=== PATIENT | female | born 1950 | race Caucasian/White ===

== ENCOUNTER 2021-11-10 09:44 | Inpatient (IN) | payer MEDICARE ==
[2021-11-10 14:46] LABS: Bilirubin Neg (Negative); Blood, Urine Negative (Negative); Clarity Clear (Clear); Glucose, Urine (Dipstick) Normal (Negative); Ketone, Urine Negative (Negative); Leukocyte 25 (Negative); Nitrite Negative (Negative); Protein, Urine (Dipstick) Negative (Neg-Trace); Specific Gravity, Urine 1.015 (1.002-1.036); Urobilinogen Normal mg/dL (Less than 2)
[2021-11-10 14:53] LABS: #Eosinphils 0.1 10x3/uL (0.0-0.5); #Monocytes 0.5 10x3/uL (0.0-1.1); #Neutrophils 3.9 10x3/uL (1.5-8.4); %Basophils 0.5 % (0.0-2.0); %Eosinophils 0.9 % (0.0-6.0); %Monocytes 9.2 % (0.0-10.0); %Neutrophils 66.2 % (40.0-75.0); Hemoglobin 14.6 g/dL (12.0-15.5); Mean Corpuscular HGB CONC 32.3 g/dL (32.0-36.0); Mean Corpuscular Hemoglobin 27.8 pg (27.0-33.0); Mean Corpuscular Volume 85.9 fl (81.6-98.3); Mean Platelet Volume 10.7 fl (7.4-10.4); Platelet Count 261 10x3/uL (150-450); RBC Distribution Width 13.2 % (11.5-14.5); Red Blood Cell (RBC) Count 5.26 10x6/uL (3.90-5.03); White Blood Cell (WBC) Count 5.9 10x3/uL (3.5-10.5)
[2021-11-10 14:58] LABS: INR-International Normal Ratio 0.9; Prothrombin Time 9.9 sec (9.5-12.1)
[2021-11-10 15:00] LABS: Anion Gap 17 mmol/L (10-20); BUN (Urea Nitrogen) 11 mg/dL (9.8-20.1); Calc. Creatinine Clearance 0 mL/min (70-130); Calcium 10.1 mg/dL (7.8-10.44); Carbon Dioxide 30 mmol/L (23-31); Chloride 103 mmol/L (98-107); Estimated GFR 75; Glucose 83 mg/dL (83-110); Potassium 4.1 mmol/L (3.5-5.1); Sodium 146 mmol/L (136-145)
[2021-11-11 10:24] VITALS: BMI 35.9
[2021-11-15] MEDS ORDERED: fentaNYL Citrate/PF 100 MCG/2 ML SYRINGE ONE ×3 (06:15→07:58)
[2021-11-15] MEDS ORDERED: Vancomycin (BATCH) 1.5 GRAM/300 ML BAG ONE (06:19)
[2021-11-15] MEDS ORDERED: Sodium Chloride 0.9% 100 ML ONE ×2 (06:19→07:03)
[2021-11-15] MEDS ORDERED: Tranexamic Acid 1,000 MG/10 ML VIAL ONE (06:19)
[2021-11-15] MEDS ORDERED: Bupivacaine PF 0.5% 30 ML VIAL ONE (06:23)
[2021-11-15] MEDS ORDERED: methylPREDNISolone Acetate 40 mg/ml Vial ONE (06:23)
[2021-11-15] MEDS ORDERED: Lidocaine 1% (PF) 30 ML VIAL ONE (06:23)
[2021-11-15] MEDS ORDERED: Meperidine HCl/PF 25 MG/ML VIAL SLOW IVP PRN (06:38)
[2021-11-15] MEDS ORDERED: Promethazine HCl 25 MG/ML VIAL IVPB PRN (06:38)
[2021-11-15] MEDS ORDERED: Promethazine HCl 25 MG/ML VIAL IM PRN ×3 (06:38→07:45)
[2021-11-15] MEDS ORDERED: Ondansetron HCl/PF 4 MG/2 ML Vial IVP PRN (06:38)
[2021-11-15] MEDS ORDERED: HYDROmorphone 2 MG/ML VIAL SLOW IVP PRN (06:38)
[2021-11-15] MEDS ORDERED: Midazolam HCl 2 mg/2 ml Vial ONE (06:41)
[2021-11-15] MEDS ORDERED: PROPOFOL 200 MG/20 ML VIAL ONE (06:46)
[2021-11-15] MEDS ORDERED: Ondansetron PF 4 MG/2 ML Vial ONE (06:46)
[2021-11-15] MEDS ORDERED: Bupivacaine HCl 0.5%/Epinephrine 1:200,000/PF 30 ml Vial ONE (06:46)
[2021-11-15] MEDS ORDERED: Dexamethasone 20 MG/5 ML VIAL ONE (06:46)
[2021-11-15] MEDS ORDERED: Lidocaine 1% PF 5 ML VIAL ONE (06:46)
[2021-11-15] MEDS ORDERED: CEFAZOLIN 2 GM VIAL ONE (07:03)
[2021-11-15] MEDS ORDERED: Acetaminophen 325 MG TAB PO PRN (07:19)
[2021-11-15] MEDS ORDERED: Fentanyl 100 MCG/2 ML VIAL SLOW IVP PRN (07:19)
[2021-11-15] MEDS ORDERED: Ondansetron PF 4 MG/2 ML Vial IVP PRN ×2 (07:19→07:45)
[2021-11-15] MEDS ORDERED: traMADol HCl 50 MG TAB PO PRN ×3 (07:19→07:45)
[2021-11-15] MEDS ORDERED: diphenhydrAMINE 25 MG CAP PO PRN (07:19)
[2021-11-15] MEDS ORDERED: Zolpidem Tartrate 5 MG TAB PO PRN ×2 (07:19→07:45)
[2021-11-15] MEDS ORDERED: HYDROcodone/Acetaminophen 10/325 mg Tablet PO PRN ×3 (07:19→07:45)
[2021-11-15] MEDS ORDERED: Vancomycin HCl 1.5 GM in Sodium Chloride 0.9% 250 ML 300 ML IVPB SCH (07:30)
[2021-11-15] MEDS ORDERED: Tranexamic Acid 1,000 MG in Sodium Chloride 0.9% 100 ML IVPB SCH (07:30)
[2021-11-15] MEDS ORDERED: ceFAZolin 2 GM/Dextrose 50 ML 2 GM in Premix Bag 1 BAG IVPB SCH (07:30)
[2021-11-15] MEDS ORDERED: Fentanyl 100 MCG/2 ML VIAL IV PRN (07:38)
[2021-11-15] MEDS ORDERED: Ropivacaine 0.2% 550 ML 550 ML NERVE BLCK SCH (07:45)
[2021-11-15] MEDS ORDERED: Non-Formulary Item 1 EACH (Calcium Carb, Citrate/Vit D3 [Calcium + D3 Er Tablet] 1 TABLET PO SCH (09:00)
[2021-11-15] MEDS ORDERED: Fentanyl 100 MCG/2 ML VIAL ONE ×2 (09:31→10:02)
[2021-11-15] MEDS: Aspirin 81 mg Enteric Coated Tablet PO SCH ×2 (11:06→21:12)
[2021-11-15] MEDS: Multivitamin W/ Minerals 1 TAB PO SCH (11:07)
[2021-11-15] MEDS: Calcium Carbonate 600 MG + Vit D TAB PO SCH (11:07)
[2021-11-15] MEDS: Ferrous Gluconate 324 MG TAB PO SCH ×2 (11:07→21:12)
[2021-11-15] MEDS: Hydrochlorothiazide 25 MG TAB PO SCH (11:07)
[2021-11-15] MEDS: Senokot S 8.6-50 MG TAB PO SCH ×2 (11:08→21:12)
[2021-11-15] MEDS: Sodium Chloride 0.9% 1,000 ML IV SCH ×2 (12:42→18:50)
[2021-11-15] MEDS: Ketorolac Tromethamine 30 MG/ML VIAL IVP SCH ×3 (12:43→23:40)
[2021-11-15] MEDS ORDERED: Ketorolac Tromethamine 30 MG/ML VIAL IVP SCH (14:00)
[2021-11-15] MEDS: CEFAZOLIN 2 GM in Sodium Chloride 0.9% 100 ML IVPB SCH ×2 (14:48→21:11)
[2021-11-15] MEDS ORDERED: Pravastatin Sodium 40 MG TAB PO SCH (21:00)
[2021-11-15] MEDS ORDERED: Atorvastatin Calcium 10 MG TAB PO SCH (21:00)
[2021-11-16] MEDS: Sodium Chloride 0.9% 1,000 ML IV SCH ×2 (05:05→12:59)
[2021-11-16] MEDS: Ketorolac Tromethamine 30 MG/ML VIAL IVP SCH ×2 (05:06→12:49)
[2021-11-16 05:19] LABS: Hemoglobin 10.4 g/dL (12.0-16.0); Mean Corpuscular HGB CONC 31.9 g/dL (32.0-36.0); Mean Corpuscular Hemoglobin 28.8 pg (27.0-31.0); Mean Corpuscular Volume 90.4 fL (78.0-98.0); Mean Platelet Volume 8.2 fL (7.4-10.4); Platelet Count 177 thou/uL (130-400); RBC Distribution Width 12.5 % (11.5-14.5); Red Blood Cell (RBC) Count 3.61 mill/uL (4.20-5.40); White Blood Cell (WBC) Count 16.3 thou/uL (4.8-10.8)
[2021-11-16] MEDS: Calcium Carbonate 600 MG + Vit D TAB PO SCH (07:57)
[2021-11-16] MEDS: Multivitamin W/ Minerals 1 TAB PO SCH (07:57)
[2021-11-16] MEDS: Hydrochlorothiazide 25 MG TAB PO SCH (07:57)
[2021-11-16] MEDS: Aspirin 81 mg Enteric Coated Tablet PO SCH (07:57)
[2021-11-16] MEDS: Ferrous Gluconate 324 MG TAB PO SCH (07:57)
[2021-11-16] MEDS: Senokot S 8.6-50 MG TAB PO SCH (07:58)
[2021-11-16] MEDS: HYDROcodone/Acetaminophen 10/325 mg Tablet PO PRN ×2 (08:00→16:21)
[2021-11-16 15:48] VITALS: BP 131/70; TEMP 98.5
== END 2021-11-16 16:00 | disposition home or self-care (01) | DRG 470 ==
LOC: SURG A 11-15 05:31 → SJJU 11-15 10:59
PROVIDERS: ADMIT Orthopaedic Surgery; ATTEND Orthopaedic Surgery
PROC: 0SRC0J9 Replacement of Right Knee Joint with Synthetic Substitute, Cemented, Open Approach (ICD-10-PCS; principal; 2021-11-15)
PROC: 3E0U33Z Introduction of Anti-inflammatory into Joints, Percutaneous Approach (ICD-10-PCS; 2021-11-15)
PROC: 3E0U3BZ Introduction of Anesthetic Agent into Joints, Percutaneous Approach (ICD-10-PCS; 2021-11-15)
DX: M17.0 Bilateral primary osteoarthritis of knee (principal); M75.42 Impingement syndrome of left shoulder; Z20.822 Contact with and (suspected) exposure to COVID-19; M25.761 Osteophyte, right knee; Z79.899 Other long term (current) drug therapy; Z90.710 Acquired absence of both cervix and uterus
CPT/HCPCS: 36415; 80048; 81003; 85025; 85027; 85610; 86850; 86900; 86901; 87081; 87811; A4306; C1713; C1776; J0690; J1100; J1885; J2001; J2250; J2405; J2704; J2795; J2920; J3010; J3370; J3490; J7050; S0020

== ENCOUNTER 2021-11-10 12:58 | Outpatient (CLI) | payer MEDICARE | END 2021-11-10 12:59 | disposition home or self-care (01) | LOC: LABBT 12:58 | PROVIDERS: ATTEND Orthopaedic Surgery | DX: Z01.818 Encounter for other preprocedural examination (principal); M17.0 Bilateral primary osteoarthritis of knee | CPT/HCPCS: 71046; 80048; 81003; 85025; 85610; 86850; 86900; 86901; 87081; 87811; 93005; 93010 ==